=== PATIENT | female | born 1950 | race Caucasian/White ===

== ENCOUNTER 2017-09-02 11:37 | Outpatient (CLI) | payer MEDICARE, OTHER ==
[~2017-09-02] VITALS: Ht 172.7 cm; Wt 161.7 kg
[~2017-09-02 11:37] MED LIST: ACHD5005 PO; AMOX-355 PO; CALC-694 PO; CARV80CP PO; DONE5TAB30 PO; DULA0.75 SQ; DULO60CA6 PO; ESCI20TA PO; FEXO-14 PO; FURO-125 PO; GLIP10TA13 PO; LAMO200T2 PO; LEVO50TA PO; OLME20TA21 PO; OMEP20CA6 PO; OXYB5TAB9 PO; PIOG30TA38 PO; PRD20T PO; ROSU5TAB PO
[2017-09-02 12:00] VITALS: BP 131/77
[2017-09-02 12:26] LABS: BASOPHILS # (AUTO) 0.1 10^3/uL (0.0-0.1); BASOPHILS % (AUTO) 1 % (0-10); EOSINOPHILS # (AUTO) 0.7 10^3/uL (0.0-0.3); EOSINOPHILS % (AUTO) 8 % (0-10); HEMATOCRIT 40 % (35-52); HEMOGLOBIN 13.8 G/DL (11.5-16.0); LYMPHOCYTES # (AUTO) 2.4 X 10^3 (1.0-4.0); LYMPHOCYTES % (AUTO) 31 % (12-44); MEAN CORPUSCULAR HEMOGLOBIN 32 PG (25-34); MEAN CORPUSCULAR HGB CONC 35 G/DL (32-36); MEAN CORPUSCULAR VOLUME 92 FL (80-99); MEAN PLATELET VOLUME 10.4 FL (7.4-10.4); MONOCYTES # (AUTO) 0.6 X 10^3 (0.0-1.0); MONOCYTES % (AUTO) 7 % (0-12); NEUTROPHILS # (AUTO) 4.3 X 10^3 (1.8-7.8); NEUTROPHILS % (AUTO) 53 % (42-75); PLATELET COUNT 209 10^3/uL (130-400); RED CELL DISTRIBUTION WIDTH 13.3 % (10.0-14.5)
[2017-09-02 12:46] LABS: CALCIUM 9.8 MG/DL (8.5-10.1); CREATININE SERUM 1.27 MG/DL (0.60-1.30); POTASSIUM 4.4 MMOL/L (3.6-5.0)
== END 2017-09-02 13:40 | disposition home or self-care (01) ==
LOC: PREOP 11:37
PROVIDERS: ATTEND Otolaryngology Otolaryngology/Facial Plastic Surgery
DX: Z01.810 Encounter for preprocedural cardiovascular examination (principal); Z01.812 Encounter for preprocedural laboratory examination; Z11.2 Encounter for screening for other bacterial diseases; J32.9 Chronic sinusitis, unspecified
CPT/HCPCS: 36415; 80048; 85025; 87081

== ENCOUNTER 2017-09-09 07:39 | Day surgery (SDC) | payer MEDICARE, OTHER ==
[~2017-09-09] VITALS: Ht 172.7 cm; Wt 161.7 kg
[2017-09-09] MEDS ORDERED: AMPICILLIN/SULBACTAM 1.5 GM/NS 100 ML IVPB IV ONE ×2 (08:00)
[2017-09-09] MEDS ORDERED: ONDANSETRON 4 MG/2 ML (SDV) Z0FRAN IV ONE (08:15)
[2017-09-09] MEDS ORDERED: CATHETER FLUSH 10 ML SYR IV PRN (08:15)
[2017-09-09] MEDS ORDERED: FAMOTIDINE 20MG/2ML IV (PEPCID) IV ONE (08:15)
[2017-09-09] MEDS ORDERED: LIDOCAINE 1% INJ 20 ML (XYLOCAINE) VIAL ONE (08:20)
[2017-09-09] MEDS ORDERED: LACTATED RINGERS 1,000 ML IV PRN (08:36)
[2017-09-09 08:43] VITALS: BP 169/88
[2017-09-09] MEDS ORDERED: AMPICILLIN/SULBACTAM INJECTION 1.5 GM in NS (IVPB) 100 ML IV ONE (08:45)
[2017-09-09] MEDS ORDERED: COCAINE HCL 4% 2 ML SYR ONE (10:13)
[2017-09-09] MEDS ORDERED: BSS 15 ML ONE (10:13)
[2017-09-09] MEDS ORDERED: LIDOCAINE/EPI 1%-1:200,000 (XYLOCAINE) 10 ML VIAL ONE (10:14)
[2017-09-09] MEDS ORDERED: PHENYLEPHRINE 0.5% NASAL SPR (NEO-SYNEPHRINE) REG ONE (10:14)
[2017-09-09] MEDS ORDERED: MIDAZOLAM 2 MG/2 ML (VERSED) VIAL ONE (10:23)
[2017-09-09] MEDS ORDERED: SEVOFLURANE (ULTANE) 15 ML INHAL SOLN ONE (10:23)
[2017-09-09] MEDS ORDERED: ONDANSETRON 4 MG/2 ML (SDV) Z0FRAN ONE ×2 (10:23→13:13)
[2017-09-09] MEDS ORDERED: proPOfol 200 MG/20 ML (DIPRIVAN) VIAL IV ONE (10:23)
[2017-09-09] MEDS ORDERED: LIDOCAINE PF 2% 5 ML (XYLOCAINE) VIAL ONE (10:23)
[2017-09-09] MEDS ORDERED: fentaNYL INJECTION 100 MCG/2 ML AMP ONE (10:23)
[2017-09-09] MEDS ORDERED: ROCURONIUM 10 MG/ML 5 ML SYRINGE IV ONE (10:23)
[2017-09-09] MEDS ORDERED: SUCCINYLCHOLINE INJ 100 MG/5 ML SYR ONE (10:23)
--- NOTE | 2017-09-09 11:59 | Progress Note-Pre Operative ---
Pre-Operative Progress Note H&P Reviewed The H&P was reviewed, patient examined and no changes noted. Date Seen by Provider: Sep 09, 2017 Time Seen by Provider: 11:45 Date H&P Reviewed: Sep 09, 2017 Time H&P Reviewed: 11:45 Pre-Operative Diagnosis: Chronic/REcurrent Sinusitis with Nasal POlyps ALEX TOVAR MD Sep 09, 2017 11:58 am
[2017-09-09] MEDS ORDERED: D5 1/2 NS W/KCL 20 MEQ/L 1,000 ML IV SCH (12:55)
--- NOTE | 2017-09-09 12:55 | Progress Note-Post Operative ---
Post-Operative Progess Note Surgeon (s)/Purchasing Coordinator (s) Surgeon ALEX TOVAR MD Purchasing Coordinator n/a Pre-Operative Diagnosis Chronic/REcurrent Sinusitis with Nasal POlyps Post-Operative Diagnosis same Post-Op Procedure Note Date of Procedure: Sep 09, 2017 Name of Procedure Performed: Left ESS, Left Reduction of the Inferior Turbinate Description & Findings Description and Findings: n/a Anesthesia Type get Estimated Blood Loss minimal Packing none. Specimen(s) collected/removed Fungal ball Lesft maxillary sinus, Culture-aerobic, anaerobic, and fungal culture ALEX TOVAR MD Sep 09, 2017 12:55 pm
[2017-09-09] MEDS ORDERED: PROMETHAZINE INJ 25 MG/ML (PHENERGAN) AMP IVP PRN (13:00)
[2017-09-09] MEDS ORDERED: HYDROcodone/APAP 5 MG/325 MG (LORTAB) TAB PO PRN (13:00)
[2017-09-09] MEDS ORDERED: ACETAMINOPHEN 325 MG TABLET/CAPLET (TYLENOL) PO PRN (13:00)
[2017-09-09] MEDS ORDERED: NEOSTIGMINE 1 MG/ML 5 ML SYRINGE ONE (13:16)
[2017-09-09] MEDS ORDERED: GLYCOPYRROLATE 0.2 MG/ML (ROBINUL) 2 ML VIAL ONE (13:16)
[2017-09-09] MEDS ORDERED: ONDANSETRON 4 MG/2 ML (SDV) Z0FRAN IVP PRN (13:30)
[2017-09-09] MEDS ORDERED: morphine INJ 10 MG/ML 1ML (SYR OR VIAL) IVP PRN (13:30)
[2017-09-09 14:15] VITALS: BP 161/72
[2017-09-09 14:45] VITALS: BP 146/79
--- NOTE | 2017-09-09 14:57 | Anesthesia-General Post-Op ---
General Patient Condition Mental Status/LOC: Same as Preop Cardiovascular: Satisfactory Nausea/Vomiting: Absent Respiratory: Satisfactory Pain: Controlled Complications: Absent Post Op Complications Complications None Follow Up Care/Instructions Patient Instructions None needed. Anesthesia/Patient Condition Patient Condition Patient is doing well, no complaints, stable vital signs, no apparent adverse anesthesia problems. No complications reported per nursing. ANDREEA CARY CRNA Sep 09, 2017 14:57
[2017-09-09] MEDS ORDERED: LEVO500T2 PO (15:00)
[2017-09-09] MEDS ORDERED: HYDR-3812 PO (15:00)
[2017-09-09 15:15] VITALS: BP 147/77
[2017-09-09 15:45] VITALS: BP 147/77
--- OUTSIDE RECORDS SUMMARY | 2017-09-11 03:55 | XMS REPORT ---
Author Author [facility] Medical Staff Organization [facility] Address [address], [place] [address] Phone [phone] Care Team Providers Care Welfare Eligibility Interviewer Name Role Phone XIAO REBOLLRA MARLINE PP [phone] Summary purpose TRANSITION OF CARE AUTO GENERATION Chief Complaint and Reason for Visit No authorized Reason for Visit (Admitting Diagnosis) is available for this visit. Problem list No authorized problems tracked for continuity of care are available for this visit. Encounters No authorized problems tracked for encounter diagnoses are available for this visit. Medications No medications recorded for this patient visit Allergies, adverse reactions, alerts No allergy information is available for this patient. Immunizations No immunizations recorded for this patient visit Relevant diagnostic tests and/or laboratory data RESULTS Special Chemistry [id number]:05:00 Result Normal Range Units Hemoglobin A1C H 7.2 4.5-6.2 % Thyroid Testing [id number]:05:00 Result Normal Range Units TSH 1.26 0.36-3.74 uIU/mL Free T4 0.93 0.76-1.46 ng/dl History of procedures Procedure Code Code Type Description Date Performed Performing Physician 82327 CPT-4 ASSAY OF FREE THYROXINE 10-13-2015 MARLINE HAGEN 93053 CPT-4 ASSAY THYROID STIM HORMONE 10-13-2015 MARLINE HAGEN 42836 CPT-4 GLYCOSYLATED HEMOGLOBIN TEST 10-13-2015 MARLINE HAGEN Functional status No functional or cognitive status observations are available for this visit. Vital signs No authorized vital signs are available for this visit. Social history No Social History or smoking status observations were recorded for this visit. ( Unknown if ever smoked.) Treatment Plan No treatment plan text is available for this visit. Hospital discharge instructions No discharge instruction text is available for this visit.
--- OUTSIDE RECORDS SUMMARY | 2017-09-11 03:55 | XMS REPORT ---
Author Author [facility] Medical Staff Organization [facility] Address [address], [place] [address] Phone [phone] Care Team Providers Care Embedded Systems Software Engineer Name Role Phone MARLINE HAGEN APRN PP [phone] Summary purpose TRANSITION OF CARE AUTO GENERATION [...] tests and/or laboratory data RESULTS Special Chemistry [id number]:05:00 Result Normal Range Units Hemoglobin A1C H 7.2 4.5-6.2 % Thyroid Testing :05:00 Result Normal Range Units TSH 1.26 0.36-3.74 uIU/mL Free T4 0.93 0.76-1.46 ng/dl History of procedures No procedures recorded for this patient visit. Functional status No functional or cognitive status [...]
--- OUTSIDE RECORDS SUMMARY | 2017-09-11 03:56 | XMS REPORT | Clinical Summary ---
Author Author Admin, E Organization [facility] Address Unknown Phone Unavailable Allergies, Adverse Reactions, Alerts Allergy Name Reaction Description Start Date Severity Status Provider SULAR Severe Active [employer] PA Conditions or Problems Problem Name Problem Code Onset Date Status Entry Date Provider Comment Standard Description Annotate DIABETES, TYPE 2 250.00 [facility] Diabetes mellitus without mention of complication, type II or unspecified type, not stated as uncontrolled HYPERTENSION 401.9 [facility] Unspecified essential hypertension DEPRESSION 311 [facility] Depressive disorder, not elsewhere classified HYPERLIPIDEMIA 272.4 [facility] Other and unspecified hyperlipidemia FH STROKE V17.1 [facility] Family history of stroke (cerebrovascular) FH DIABETES V18.0 Active [facility] [place] Family history of diabetes mellitus G E R D 530.81 Active [facility]ara [place] PA Esophageal reflux INCONTINENCE 788.30 Active [facility] [place] PA Urinary incontinence, unspecified DERMATITIS 692.9 Resolved [facility] [place] PA Contact dermatitis and other eczema, unspecified cause EUSTACHIAN TUBE DYSFUNCTION, BILATERAL 381.81 Resolved Day[facility]ara [place] PA Dysfunction of Eustachian tube SKIN LESION 709.9 Resolved Day[facility]ara [place] PA Unspecified disorder of skin and subcutaneous tissue FOREIGN BODY IN EAR 931 Resolved Dayanara [place] PA Foreign body in ear ALLERGIC RHINITIS 477.9 Resolved Dayanara [place] PA Allergic rhinitis, cause unspecified DIARRHEA, ACUTE 787.91 Resolved Dayanara [place] Diarrhea ACUTE MAXILLARY SINUSITIS 461.0 Resolved [facility] [place] KAREN Acute maxillary sinusitis HOT FLASHES 627.2 Active Dayanara JONES Symptomatic menopausal or female climacteric states DIAPHORESIS 780.8 Active Dayanara [place] KAREN Generalized hyperhidrosis PALLOR 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.61 Active Dayanara [place] KAREN Pallor ADHD 314.01 Active David JONES Attention deficit disorder of childhood with hyperactivity Health maintenance exam V70.0 Active Lata Sweeney APRN Routine general medical examination at a health care facility Sinusitis, acute 461.9 Active Lata Sweeney APRN Acute sinusitis, unspecified DERMATITIS ICD-692.9 Inactive Dayanara [place] PA EUSTACHIAN TUBE DYSFUNCTION, BILATERAL ICD-381.81 Inactive [facility]ara [place] SKIN LESION ICD-709.9 Inactive Dayanara [place] PA 01/26 FOREIGN BODY IN EAR ICD-931 Inactive Day[facility]ara [place] ALLERGIC RHINITIS ICD-477.9 Inactive Dayanara [place] PA DIARRHEA, ACUTE ICD-787.91 Inactive Dayanara [place] PA ACUTE MAXILLARY SINUSITIS ICD-461.0 Inactive Dayanara [place] PA Medication List Medication Instructions Start Date Stop Date Generic Name NDC Status Provider Patient Instruction ZITHROMAX 250 MG TAB 2 po today, then 1 po q days 2-5 AZITHROMYCIN 40636613552 No Longer Active Lata Sweeney APRN Active NYSTATIN 603698 UNIT/ML SUSP 5ml in each cheek QID until 48 hours after thrush resolved NYSTATIN 39805235650 Active Lata Sweeney APRN Active ZITHROMAX 250 MG TAB 2 po today, then 1 po q days 2-5 AZITHROMYCIN 39008525831 No Longer Active Lata Sweeney APRN Active [facility] FISH OIL 1000 MG CAPS Take 1 capsule every evening. OMEGA- 3 FATTY ACIDS 67790727046 Active Felicitas Rod Active SM VITAMIN E 200 UNIT CAPS Take 2 capsules daily VITAMIN E 35608358750 Active Felicitas Rod Active KLOR-CON M20 20 MEQ CR-TABS 1 tab po daily POTASSIUM CHLORIDE CARLITA CR 93566864849 No Longer Active Felicitas Rod Active LASIX 20 MG TABS take 1/2 tab po daily FUROSEMIDE 76816765950 No Longer Active Felicitas Rod Active HALOBETASOL PROPIONATE 0.05 % OINT apply to affected area bid as needed 09/07 HALOBETASOL PROPIONATE 21680693031 Active Felicitas Rod Active ACTOS 15 MG TABS take one tab po daily PIOGLITAZONE HCL 33065858148 No Longer Active Felicitas Rod Active METFORMIN HCL 500 MG TABS Take 1 tablet BID METFORMIN HCL 34408740304 Active Felicitas Rod Active SUDAFED 12 HOUR 120 MG [id number] take one tab po bid prn PSEUDOEPHEDRINE HCL 60926187442 No Longer Active Felicitastimothy Rod Active ADDERALL 20 MG TABS take 1 po QAM and 1 po Qnoon ADHD AMPHETAMINE-DEXTROAMPHETAMINE 16397215982 No Longer Active Felicitas Marcel Active AMOXICILLIN-POT CLAVULANATE 875-125 MG TABS take one tab po bid x 10 days AMOXICILLIN-POT CLAVULANATE 34530012066 No Longer Active Dayanara JONES Active GLIPIZIDE 10 MG TABS 1 tab po bid GLIPIZIDE 28042674754 Active David JONES Active ONETOUCH ULTRA BLUE STRP test blood sugar tid GLUCOSE BLOOD 74445129564 Active Dayanara JONES Active CRESTOR 5 MG TABS take one tab po daily ROSUVASTATIN CALCIUM 46427559315 Active David JONES Active MARYANN ALLERGY 180 MG TABS take one tab po daily FEXOFENADINE HCL 02853193794 Active Emelyn Rendon RN Active CLARITIN 10 MG CAPS one p.o. daily LORATADINE 88302178531 No Longer Active Dayanara Adhikari PA Active MEDROL (SHONNA) 4 MG TABS take as directed METHYLPREDNISOLONE 47660520565 No Longer Active Dayanara Adhikari PA Active PROTONIX 40 MG TBEC 1 tab po daily PANTOPRAZOLE SODIUM 30589968413 No Longer Active Dayanara Adhikari PA Active NAPROXEN 500 MG TABS take 1 tab po bid prn pain with food NAPROXEN 00789353660 Active Lata Sweeney APRN Active PRILOSEC 20 MG CPDR 1 cap po daily OMEPRAZOLE 75729775202 Active Lata Sweeney APRN Active OXYBUTYNIN CHLORIDE 5 MG TABS 1 tab po daily OXYBUTYNIN CHLORIDE 74232852975 Active Malinda Cuevas Juan CALCINER OPERATOR Active LEXAPRO 20 MG TABS 1 tab po daily ESCITALOPRAM OXALATE 31521691443 Active Lata Sweeney APRN Active CYMBALTA 60 MG CPEP 1 tab po bid DULOXETINE HCL 47387232392 Active Derek Coles MD Active LAMOTRIGINE 200 MG TABS 1 tab po daily qhs LAMOTRIGINE 52349748887 Active David JONES Active GLIPIZIDE 10 MG TABS 1 tab po daily GLIPIZIDE 31600842225 No Longer Active Dayanara JONES Active ONGLYZA 5 MG TABS 1 tab po daily SAXAGLIPTIN HCL 05229516551 Active Derek Coles MD Active COREG CR 80 MG [id number] 1 cap po daily CARVEDILOL PHOSPHATE 07756632723 Active David JONES Active BENICAR 20 MG TABS 1 tab po daily OLMESARTAN MEDOXOMIL 75430314789 Active David JONES Active TRIAMCINOLONE ACETONIDE 0.025 % CREA apply to effected area TID prn TRIAMCINOLONE ACETONIDE 01975301398 Active Dayanara JONES Active PROTONIX 40 MG TBEC 1 tab po daily PROTONIX 40 MG TBEC 705720 PANTOPRAZOLE SODIUM Inactive MEDROL (SHONNA) 4 MG TABS take as directed MEDROL (SHONNA) 4 MG TABS METHYLPREDNISOLONE Inactive CLARITIN 10 MG CAPS one p.o. daily CLARITIN 10 MG CAPS LORATADINE Inactive AMOXICILLIN-POT CLAVULANATE 875-125 MG TABS take one tab po bid x 10 days AMOXICILLIN-POT CLAVULANATE 875-125 MG TABS 954394 AMOXICILLIN-POT CLAVULANATE Inactive ADDERALL 20 MG TABS take 1 po QAM and 1 po Qnoon ADHD ADDERALL 20 MG TABS 581799 AMPHETAMINE-DEXTROAMPHETAMINE Inactive SUDAFED 12 HOUR 120 MG [id number] take one tab po bid prn SUDAFED 12 HOUR 120 MG [id number] PSEUDOEPHEDRINE HCL Inactive ACTOS 15 MG TABS take one tab po daily ACTOS 15 MG TABS 203676 PIOGLITAZONE HCL Inactive LASIX 20 MG TABS take 1/2 tab po daily LASIX 20 MG TABS 636048 FUROSEMIDE Inactive KLOR-CON M20 20 MEQ CR-TABS 1 tab po daily KLOR-CON M20 20 MEQ CR-TABS POTASSIUM CHLORIDE CARLITA CR Inactive GLIPIZIDE 10 MG TABS 1 tab po daily GLIPIZIDE 10 MG TABS 711843 GLIPIZIDE Inactive ZITHROMAX 250 MG TAB 2 po today, then 1 po q days 2-5 ZITHROMAX 250 MG TAB 1989921 AZITHROMYCIN Inactive ZITHROMAX 250 MG TAB 2 po today, then 1 po q days 2-5 ZITHROMAX 250 MG TAB 4303478 AZITHROMYCIN Inactive Encounters Code Encounter Date Provider Facility CPT-07227 Level 4 Est. Patient 09:44:29 RESIDENTIAL GLAZIER Lata Sweeney APRN [facility] CPT-98590 Level 3 New Patient 15:02:44 RESIDENTIAL GLAZIER David Toney [facility] CPT-15772 Level 3 Est. Patient 16:25:22 CDT [facility] CPT-97505 Level 3 Est. Patient 11:35:02 CDT [facility] CPT-01790 Level 3 Est. Patient 16:35:43 [facility] Level 3 Est. Patient 12:18:38 [facility]IAL GLAZIER [facility]479[facility] Level 3 Est. Patient 11:08:39 CDT [facility] CPT-21825 Level 3 Est. Patient 13:06:59 CDT [facility] CPT-30082 Level 3 Est. Patient 12:22:13 RESIDENTIAL GLAZIER [facility] CPT-67755 Level 4 Est. Patient 10:50:12 CDT [facility] CPT-94863 Level 4 Est. Patient 15:50:31 CDT [facility] Procedures Code Procedure Name Date Entry Date Standard Description CPT-17244 Hemoccult x3 (Floor Use Only) 16:35:43 RESIDENTIAL GLAZIER CPT-95678 Ear Wash 13:06:59 CDT
--- OUTSIDE RECORDS SUMMARY | 2017-09-11 03:56 | XMS REPORT | Clinical Summary ---
Author Author Admin, E Organization [facility] Address Unknown Phone Unavailable Allergies, Adverse Reactions, Alerts Allergy Name Reaction Description Start Date Severity Status Provider SULAR Severe Active [employer] PA Conditions or Problems Problem Name Problem Code Onset Date Status Entry Date Provider Comment Standard Description Annotate DIABETES, TYPE 2 250.00 [facility] Diabetes mellitus without mention of complication, type II or unspecified type, not stated as uncontrolled HYPERTENSION 401.9 [facility] Unspecified essential hypertension DEPRESSION 311 [facility] Depressive disorder, not elsewhere classified HYPERLIPIDEMIA 272.4 [facility] Other and unspecified hyperlipidemia FH STROKE V17.1 [facility] Family history of stroke (cerebrovascular) FH DIABETES V18.0 Active Dayanara [place] PA Family history of diabetes mellitus G E R D 530.81 Active Dayanara [place] PA Esophageal reflux INCONTINENCE 788.30 Active Dayanara [place] PA Urinary incontinence, unspecified DERMATITIS 692.9 Resolved Dayanara [place] PA Contact dermatitis and other eczema, unspecified [...] Diarrhea ACUTE MAXILLARY SINUSITIS 461.0 Resolved Dayanara [place] KAREN Acute maxillary sinusitis HOT FLASHES 627.2 Active Dayanara JONES Symptomatic menopausal or female climacteric states DIAPHORESIS 780.8 Active Dayanara [place] KAREN Generalized hyperhidrosis PALLOR 782.61 Active Dayanara [place] KAREN Pallor ADHD 314.01 Active David JONES [...] then 1 po q days 2-5 AZITHROMYCIN 82207277981 No Longer Active Lata Sweeney APRN Active NYSTATIN 774422 UNIT/ML SUSP 5ml in each cheek QID until 48 hours after thrush resolved NYSTATIN 49209583206 Active Lata Sweeney APRN Active ZITHROMAX 250 MG TAB 2 po today, then 1 po q days 2-5 AZITHROMYCIN 21582718085 No Longer Active Lata Sweeney APRN Active [facility] FISH OIL 1000 MG CAPS Take 1 capsule every evening. OMEGA- 3 FATTY ACIDS 21687344969 Active Felicitas Rod Active SM VITAMIN E 200 UNIT CAPS Take 2 capsules daily VITAMIN E 68317708474 Active Felicitas Rod Active KLOR-CON M20 20 MEQ CR-TABS 1 tab po daily POTASSIUM CHLORIDE CARLITA CR 52569844381 No Longer Active Felicitas Rod Active LASIX 20 MG TABS take 1/2 tab po daily FUROSEMIDE 30014161973 No Longer Active Felicitas Rod Active HALOBETASOL PROPIONATE 0.05 % OINT apply to affected area bid as needed 09/07 HALOBETASOL PROPIONATE 86388635700 Active Felicitas Rod Active ACTOS 15 MG TABS take one tab po daily PIOGLITAZONE HCL 50057524658 No Longer Active Felicitas Rod Active METFORMIN HCL 500 MG TABS Take 1 tablet BID METFORMIN HCL 21675269891 Active Felicitas Rod Active SUDAFED 12 HOUR 120 MG [id number] take one tab po bid prn PSEUDOEPHEDRINE HCL 05761575172 No Longer Active Felicitastimothy Rod Active ADDERALL 20 MG TABS take 1 po QAM and 1 po Qnoon ADHD AMPHETAMINE-DEXTROAMPHETAMINE 33989638482 No Longer Active Felicitas Marcel Active AMOXICILLIN-POT CLAVULANATE 875-125 MG TABS take one tab po bid x 10 days AMOXICILLIN-POT CLAVULANATE 09518094634 No Longer Active Dayanara JONES Active GLIPIZIDE 10 MG TABS 1 tab po bid GLIPIZIDE 61212657668 Active David JONES Active ONETOUCH ULTRA BLUE STRP test blood sugar tid GLUCOSE BLOOD 24571592099 Active Dayanara JONES Active CRESTOR 5 MG TABS take one tab po daily ROSUVASTATIN CALCIUM 66678180076 Active David JONES Active MARYANN ALLERGY 180 MG TABS take one tab po daily FEXOFENADINE HCL 21359196510 Active Emelyn Rendon RN Active CLARITIN 10 MG CAPS one p.o. daily LORATADINE 15400073806 No Longer Active Dayanara Adhikari PA Active MEDROL (SHONNA) 4 MG TABS take as directed METHYLPREDNISOLONE 71226336333 No Longer Active Dayanara Adhikari PA Active PROTONIX 40 MG TBEC 1 tab po daily PANTOPRAZOLE SODIUM 28066656576 No Longer Active Dayanara Adhikari PA Active NAPROXEN 500 MG TABS take 1 tab po bid prn pain with food NAPROXEN 36193197062 Active Lata Sweeney APRN Active PRILOSEC 20 MG CPDR 1 cap po daily OMEPRAZOLE 22052896828 Active Lata Sweeney APRN Active OXYBUTYNIN CHLORIDE 5 MG TABS 1 tab po daily OXYBUTYNIN CHLORIDE 58936982307 Active Malinda Cuevas Juan INSPECTOR GENERAL Active LEXAPRO 20 MG TABS 1 tab po daily ESCITALOPRAM OXALATE 93983567538 Active Lata Sweeney APRN Active CYMBALTA 60 MG CPEP 1 tab po bid DULOXETINE HCL 45411868375 Active Derek Coles MD Active LAMOTRIGINE 200 MG TABS 1 tab po daily qhs LAMOTRIGINE 18551455024 Active David JONES Active GLIPIZIDE 10 MG TABS 1 tab po daily GLIPIZIDE 18894376324 No Longer Active Dayanara JONES Active ONGLYZA 5 MG TABS 1 tab po daily SAXAGLIPTIN HCL 11176863743 Active Derek Coles MD Active COREG CR 80 MG [id number] 1 cap po daily CARVEDILOL PHOSPHATE 98437208620 Active David JONES Active BENICAR 20 MG TABS 1 tab po daily OLMESARTAN MEDOXOMIL 70246443763 Active David JONES Active TRIAMCINOLONE ACETONIDE 0.025 % CREA apply to effected area TID prn TRIAMCINOLONE ACETONIDE 00255303227 Active Dayanara JONES Active PROTONIX 40 MG TBEC 1 tab po daily PROTONIX 40 MG TBEC 589668 PANTOPRAZOLE SODIUM Inactive MEDROL (SHONNA) 4 MG TABS take as directed MEDROL (SHONNA) 4 MG TABS METHYLPREDNISOLONE Inactive CLARITIN 10 MG CAPS one p.o. daily CLARITIN 10 MG CAPS LORATADINE Inactive AMOXICILLIN-POT CLAVULANATE 875-125 MG TABS take one tab po bid x 10 days AMOXICILLIN-POT CLAVULANATE 875-125 MG TABS 632915 AMOXICILLIN-POT CLAVULANATE Inactive ADDERALL 20 MG TABS take 1 po QAM and 1 po Qnoon ADHD ADDERALL 20 MG TABS 154239 AMPHETAMINE-DEXTROAMPHETAMINE Inactive SUDAFED 12 HOUR 120 MG [id number] take one tab po bid prn SUDAFED 12 HOUR 120 MG [id number] PSEUDOEPHEDRINE HCL Inactive ACTOS 15 MG TABS take one tab po daily ACTOS 15 MG TABS 557272 PIOGLITAZONE HCL Inactive LASIX 20 MG TABS take 1/2 tab po daily LASIX 20 MG TABS 633546 FUROSEMIDE Inactive KLOR-CON M20 20 MEQ CR-TABS 1 tab po daily KLOR-CON M20 20 MEQ CR-TABS POTASSIUM CHLORIDE CARLITA CR Inactive GLIPIZIDE 10 MG TABS 1 tab po daily GLIPIZIDE 10 MG TABS 943413 GLIPIZIDE Inactive ZITHROMAX 250 MG TAB 2 po today, then 1 po q days 2-5 ZITHROMAX 250 MG TAB 8076230 AZITHROMYCIN Inactive ZITHROMAX 250 MG TAB 2 po today, then 1 po q days 2-5 ZITHROMAX 250 MG TAB 7512212 AZITHROMYCIN Inactive Encounters Code Encounter Date Provider Facility CPT-36798 Level 4 Est. Patient 09:44:29 ASSISTANT ACCOUNTING MANAGER Lata Sweeney APRN [facility] CPT-05691 Level 3 New Patient 15:02:44 ASSISTANT ACCOUNTING MANAGER David Toney [facility] CPT-98032 Level 3 Est. Patient 16:25:22 CDT [facility] CPT-56383 Level 3 Est. Patient 11:35:02 CDT [facility] CPT-08032 Level 3 Est. Patient 16:35:43 ASSISTANT ACCOUNTING MANAGER [facility] Level 3 Est. Patient 12:18:38 ASSISTANT ACCOUNTING MANAGER [facility] Level 3 Est. Patient 11:08:39 CDT [facility] CPT-99953 Level 3 Est. Patient 13:06:59 CDT [facility] CPT-33068 Level 3 Est. Patient 12:22:13 ASSISTANT ACCOUNTING MANAGER [facility] CPT-54521 Level 4 Est. Patient 10:50:12 CDT [facility] CPT-86350 Level 4 Est. Patient 15:50:31 CDT [facility] Procedures Code Procedure Name Date Entry Date Standard Description CPT-51118 Hemoccult x3 (Floor Use Only) 16:35:43 ASSISTANT ACCOUNTING MANAGER CPT-13152 Ear Wash 13:06:59 CDT
--- OUTSIDE RECORDS SUMMARY | 2017-09-11 03:56 | XMS REPORT | Continuity of Care Document ---
Author Author [facility] Organization [facility] Address Unknown Phone Unavailable Allergies Active Description Code Type Severity Reaction Onset Reported/Identified Relationship to Patient Clinical Status Yes amoxicillin Drug N/A N/A Yes Augmentin Drug N/A N/A Yes clavulanate Drug N/A N/A Yes doxycycline Drug N/A N/A Yes nisoldipine Drug N/A N/A Yes ofloxacin Drug N/A N/A Yes potassium chloride Drug N/A N/A Yes Sular Drug N/A N/ A Yes amoxicillin [id number] Drug Allergy Mild THRUSH/YEAST IN 09/02/2017 Yes clavulanic acid [id number] Drug Allergy Mild THRUSH/YEAST IN 09/02/2017 Yes nisoldipine [id number] Drug Allergy Unknown SEVERE HEADACHE 09/02/2017 Medications There is no data. Problems Date Dx Coded Attending Type Code Diagnosis Diagnosed By 03/18/2014 MARLINE HAGEN 272.4 HYPERLIPIDEMIA NEC/NOS 03/18/2014 MARLINE HAGEN 278.00 OBESITY, UNSPECIFIED 03/18/2014 MARLINE HAGEN 401.9 HYPERTENSION NOS 03/18/2014 MARLINE HAGEN V70.0 ROUTINE MEDICAL EXAM 03/20/2014 MARLINE HAGEN 401.9 HYPERTENSION NOS 11/13/2015 GUY RAINEY, ALEX Mota Ot J32.9 CHRONIC SINUSITIS, UNSPECIFIED 11/13/2015 GUY RAINEY, ALEX Mota Ot Z01.810 ENCOUNTER FOR PREPROCEDURAL CARDIOVASCUL 11/13/2015 ALEX TOVAR MD Ot Z01.812 ENCOUNTER FOR PREPROCEDURAL LABORATORY E 11/14/2015 GUY RAINEY, ALEX Mota Ot J32.9 CHRONIC SINUSITIS, UNSPECIFIED 11/14/2015 GUY RAINEY, ALEX Mota Ot Z01.810 ENCOUNTER FOR PREPROCEDURAL CARDIOVASCUL 11/14/2015 GUY RAINEY, ALEX Mota Ot Z01.812 ENCOUNTER FOR PREPROCEDURAL LABORATORY E 11/20/2015 ALEX TOVAR MD Ot E11.9 TYPE 2 DIABETES MELLITUS WITHOUT COMPLIC 11/20/2015 ALEX TOVAR MD Ot J32.0 CHRONIC MAXILLARY SINUSITIS 11/20/2015 ALEX TOVAR MD P Ot J32.2 CHRONIC ETHMOIDAL SINUSITIS 11/20/2015 ALEX TOVAR MD Ot Z79.899 OTHER BANK PRESIDENT (CURRENT) DRUG THERAPY 11/28/2015 ALEX TOVAR MD Ot J32.0 CHRONIC MAXILLARY SINUSITIS 11/28/2015 ALEX TOVAR MD P Ot J32.2 CHRONIC ETHMOIDAL SINUSITIS 11/28/2015 ALEX TOVAR MD P Ot Z79.899 OTHER FPC (CURRENT) DRUG THERAPY 11/28/2015 ALEX TOVAR MD Ot E11.9 TYPE 2 DIABETES MELLITUS WITHOUT COMPLIC 11/28/2015 ALEX TOVAR MD Ot J32.0 CHRONIC MAXILLARY SINUSITIS 11/28/2015 ALEX TOVAR MD Ot J32.2 CHRONIC ETHMOIDAL SINUSITIS 11/28/2015 ALEX TOVAR MD Ot Z79.899 OTHER BANK PRESIDENT (CURRENT) DRUG THERAPY 12/05/2015 ALEX TOVAR MD Ot E11.9 TYPE 2 DIABETES MELLITUS WITHOUT COMPLIC 12/05/2015 ALEX TOVAR MD Ot J32.0 CHRONIC MAXILLARY SINUSITIS 12/05/2015 ALEX TOVAR MD Ot J32.2 CHRONIC ETHMOIDAL SINUSITIS 12/05/2015 ALEX TOVAR MD Ot Z79.899 OTHER BANK PRESIDENT (CURRENT) DRUG THERAPY 09/06/2017 ALEX TOVAR MD Ot J32.9 CHRONIC SINUSITIS, UNSPECIFIED 09/06/2017 ALEX TOVAR MD Ot Z01.810 ENCOUNTER FOR PREPROCEDURAL CARDIOVASCUL 09/06/2017 ALEX TOVAR MD Ot Z01.812 ENCOUNTER FOR PREPROCEDURAL LABORATORY E 09/06/2017 ALEX TOVAR MD Ot Z11.2 ENCOUNTER FOR SCREENING FOR OTHER BACTER Procedures Code [place] [address] [facility] 03/18/2014 56474 LIPID PANEL 03/18/2014 67216 ASSAY OF FREE THYROXINE 03/18/2014 75141 ASSAY THYROID STIM HORMONE 03/18/2014 37717 COMPLETE CBC, AUTOMATED 03/18/2014 06630 URINALYSIS, AUTO W/SCOPE 03/20/2014 58514 GLYCOSYLATED HEMOGLOBIN TEST 10/13/2015 99910 ASSAY OF FREE THYROXINE 10/13/2015 95133 ASSAY THYROID STIM HORMONE 10/13/2015 Results Test Result Range CBC - 03/18/14 00:00 HCT 40.4 % 36.9-47.0 HGB 12.8 G/DL 12.0-16.0 MCH 29.5 PG 27-31 MCHC 31.7 G/DL 33-37 MCV 93.1 FL 81-99 MPV 11.2 FL 7.3-10.4 PLT 288 10^3u 130-400 RBC 4.3 10^6u 4.2-5.4 RDW 12.8 % 11.5-15.5 WBC 9.8 10^3u 4.8-10.8 FREE T4 - 03/18/14 00:00 FT4 0.89 NG/DL 0.76-1.46 TSH - 03/18/14 00:00 TSH 3.97 UIUML 0.36-3.74 CMP - 03/18/14 00:00 ALB 4.0 G/DL 3.5-5 ALP 58 IU/L 25-72 ALT 17 IU/L 12-65 AST 22 IU/L 10-42 BCR 12.3 10-20 BUN 23 MG/DL 7-18 CA 9.5 MG/DL 8.4-10.2 CL 99 MEQ/L 98-107 CO2 25.4 MEQ/L 22-28 CREA 1.87 MG/DL 0.6-1.0 EGFR 27 eGFR >=60 GLU 156 MG/DL 70-105 K 5.2 MEQ/L 3.5-5.1 NA 136 MEQ/L 134-145 OSMSC 278.8 MOSML 280-300 TBIL 0.4 MG/DL 0.1-1.0 TP 7.4 G/DL 6.0-8.3 Albumin/Globulin Ratio 1.2 0-8 Anion Gap 11.6 8-16 LIPID - 03/18/14 00:00 CHOHDL 3.4 1-3.5 CHOL 161 MG/DL 120-200 HDL 47 MG/DL 39-96 LDL 93 MG/DL 30-100 TRIG 177 MG/DL 35-160 VLDL 35 MG/DL 5-40 UA - 03/20/14 00:00 PH 5.5 4.5-8.0 SG 1.025 1.003-1.035 UABILI NEGATIVE UABLD NEGATIVE UACOLOR YEL UAGLU NEGATIVE UAKET NEGATIVE UALEUK NEGATIVE UANIT NEGATIVE UAURO 0.2 0-0.2 CLARITY CL PROTEIN NEGATIVE UA WBC R05 UA RBC NORBC SQUAMOUS EPITHELIAL CELLS FEW BACTERIA OCC URIC ACID CRYSTALS FEW HA1C - 04/03/14 00:00 HA1C 7.3 % 4.5-6.2 FREE T4 - 10/13/15 00:00 FT4 0.93 NG/DL 0.76-1.46 TSH - 10/13/15 00:00 TSH 1.26 UIUML 0.36-3.74 HA1C - 10/13/15 00:00 HA1C 7.2 % 4.5-6.2 Complete blood count (CBC) with automated white blood cell (WBC) differential - 09/02/17 12:15 Blood leukocytes automated count (number/volume) 8.0 10*3/uL 4.3-11.0 Blood erythrocytes automated count (number/volume) 4.30 10*6/uL 4.35-5.85 Venous blood hemoglobin measurement (mass/volume) 13.8 g/dL 11.5-16.0 Blood hematocrit (volume fraction) 40 % 35-52 Automated erythrocyte mean corpuscular volume 92 [foz_us] 80-99 Automated erythrocyte mean corpuscular hemoglobin (mass per erythrocyte) 32 pg 25-34 Automated erythrocyte mean corpuscular hemoglobin concentration measurement ( mass/volume) 35 g/dL 32-36 Automated erythrocyte distribution width ratio 13.3 % 10.0-14.5 Automated blood platelet count (count/volume) 209 10*3/uL 130-400 Automated blood platelet mean volume measurement 10.4 [foz_us] 7.4-10.4 Automated blood neutrophils/100 leukocytes 53 % 42-75 Automated blood lymphocytes/100 leukocytes 31 % 12-44 Blood monocytes/100 leukocytes 7 % 0-12 Automated blood eosinophils/100 leukocytes 8 % 0-10 Automated blood basophils/100 leukocytes 1 % 0-10 Blood neutrophils automated count (number/volume) 4.3 10*3 1.8-7.8 Blood lymphocytes automated count (number/volume) 2.4 10*3 1.0-4.0 Blood monocytes automated count (number/volume) 0.6 10*3 0.0-1.0 Automated eosinophil count 0.7 10*3/uL 0.0-0.3 Automated blood basophil count (count/volume) 0.1 10*3/uL 0.0-0.1 Whole blood basic metabolic panel - 09/02/17 12:15 Serum or plasma sodium measurement (moles/volume) 139 mmol/L 135-145 Serum or plasma potassium measurement (moles/volume) 4.4 mmol/L 3.6-5.0 Serum or plasma chloride measurement (moles/volume) 103 mmol/L 98-107 Carbon dioxide 23 mmol/L 21-32 Serum or plasma anion gap determination (moles/volume) 13 mmol/L 5-14 Serum or plasma urea nitrogen measurement (mass/volume) 28 mg/dL 7-18 Serum or plasma creatinine measurement (mass/volume) 1.27 mg/dL 0.60-1.30 Serum or plasma urea nitrogen/creatinine mass ratio 22 NRG Serum or plasma creatinine measurement with calculation of estimated glomerular filtration rate 42 NRG Serum or plasma glucose measurement (mass/volume) 127 mg/dL 70-105 Serum or plasma calcium measurement (mass/volume) 9.8 mg/dL 8.5-10.1 Methicillin resistant Staphylococcus aureus (MRSA) screening culture - 12:15 Methicillin resistant Staphylococcus aureus (MRSA) screening culture NEG NRG Encounters ACCT No. Visit Date/Time Discharge Status Pt. Type Provider Facility Loc./Unit Complaint [id number] 04/28/2017 13:29:20 04/28/2017 23:59:59 DIS Outpatient MARLINE HAGEN [facility] Marlon Camarena [id number] 10/13/2015 10:54:00 10/13/2015 10:54:00 DIS Outpatient MARLINE HAGEN [facility] [id number] 04/03/2014 08:42:00 04/03/2014 08:42:00 DIS Outpatient MARLINE HAGEN [facility] [id number] 03/20/2014 09:25:00 03/20/2014 09:25:00 DIS Outpatient MARLINE HAGEN [facility] [id number] 03/18/2014 08:30:00 03/18/2014 08:30:00 DIS Outpatient MARLINE HAGEN [facility] [id number] 08/12/2016 09:41:29 Document Registration [id number] 08/09/2016 02:02:17 Document Registration [id number] 06/02/2015 00:00:00 Document Registration [id number] 06/02/2013 00:00:00 Document Registration [id number] 06/02/2013 00:00:00 Document Registration [id number] 06/02/2013 00:00:00 Document Registration [id number] 09/02/2017 11:37:00 09/02/2017 13:40:00 DIS Outpatient ALEX TOVAR MD [facility] PRE CHRONIC SINUSITIS, TURBINATE HYPERTROPHY [id number] 11/20/2015 06:20:00 11/20/2015 11:05:00 DIS Outpatient ALEX TOVAR MD [facility] [id number] 11/13/2015 13:46:00 11/13/2015 14:30:00 DIS Outpatient ALEX TOVAR MD [facility] PREOP [id number] 09/09/2017 09[facility]45[facility] CHRONIC SINUSITIS,TURBINATE HYPERTROPHY
== END 2017-09-09 15:45 | disposition home or self-care (01) ==
LOC: SDC 07:39
PROVIDERS: ATTEND Otolaryngology Otolaryngology/Facial Plastic Surgery
DX: J32.2 Chronic ethmoidal sinusitis (principal); J33.8 Other polyp of sinus; E11.9 Type 2 diabetes mellitus without complications; I10 Essential (primary) hypertension; G47.33 Obstructive sleep apnea (adult) (pediatric); E03.9 Hypothyroidism, unspecified; K21.9 Gastro-esophageal reflux disease without esophagitis; F32.9 Major depressive disorder, single episode, unspecified; E66.01 Morbid (severe) obesity due to excess calories; Z68.43 Body mass index [BMI] 50.0-59.9, adult; Z79.899 Other long term (current) drug therapy
CPT/HCPCS: 82962; 87070; 87075; 87077; 87101; 87186; 87205